=== PATIENT | male | born 1985 | race Two or more races ===

== ENCOUNTER 2025-02-18 17:27 | Emergency (ER) | payer SELFPAY ==
[2025-02-18] VITALS (10 sets, daily range): BP systolic 146–220; BP diastolic 92–134; PULSE 92–135; RESP 18–19; TEMP 36.6; O2SAT 93–98; BMI 31.4
--- NOTE | 2025-02-18 17:39 | EDNOTE_ITS ---
ED General RME/HPI General Chief complaint: General Adult/Misc Complain Stated complaint: MEDICAL CLEARANCE Time Seen by Provider: 02/18/25 17:35 Arrival date/time: 02/18/25 17:27 CC: Medical clearance. The patient is known to be hypertensive and tachycardic at the time of exam. The patient admits to alcohol but no other medications. Patient states he has high blood pressure but has not taken his hypertensive medication in a very long time . Patient is awake alert oriented direct eye content nonviolent very cooperative and appears not in any acute distress. Denies chest pain shortness of breath or difficulty breathing. Related Data Allergies Allergy/AdvReac Type Severity Reaction Status Date / Time bee venom protein (honey bee) Allergy Severe Anaphylaxis Verified 02/18/25 17:41 Review of Systems Review of Systems Narrative Review of Systems: GEN: No fever, no chills, no weight loss EYES: No discharge, no visual changes, no pain HEENT: No ear pain, no congestion, no sore throat PULM: No shortness of breath, no cough, no congestion CV: No chest pain, no dyspnea on exertion, no palpitations GI: No nausea, no vomiting, no diarrhea, no pain, no constipation : No frequency, no urgency, no dysuria MUSC/SKEL: No joint pain, no back pain SKIN: No rash PSYCH: No hallucinations, no depression HEME/LYMPH: No easy bleeding or bruising tendencies NEURO: No weakness, no headache ED Exam Narrative Physical exam: [General: Appears not in any acute distress Head normocephalic HEENT: Within acceptable limits Neck is supple nontender Chest equal chest rise nontender to palpation Respiratory: Clear to auscultation no wheezes crackles or rubs CV: Rate rhythm is regular tachycardic, bounding pulses, no murmurs rubs or clicks Abdomen is soft nontender no masses positive bowel sounds all 4 quadrants Back: No CVA tenderness no spinous process tenderness from cervical spine thoracic and lumbar spine Skin: Intact no petechiae rash induration ulceration or crepitus Extremities: Moving all extremity against resistance cap refill less than 2 seconds neurosensory intact Neuro: Awake alert oriented x3 Glascow coma 15 no focal deficits] Course Quality Measures none Orders Category Date Time Status Diazepam [Valium] Med 02/18/25 17:38 Discontinued 10 mg PO X1 ONE Lisinopril [Prinivil] Med 02/18/25 18:20 Discontinued 20 mg PO X1 ONE Metoprolol Tartrate [Lopressor] Med 02/18/25 18:20 Discontinued 50 mg PO X1 ONE cloNIDine HCL [Catapres] Med 02/18/25 17:38 Discontinued 0.3 mg PO X1 ONE cloNIDine HCL [Catapres] Med 02/18/25 18:20 Discontinued 0.3 mg PO X1 ONE hydrALAZINE HCL [Apresoline] Med 02/18/25 17:38 Discontinued 25 mg PO X1 ONE Vital Signs Vital signs: Vital Signs Temperature 97.9 F 02/18/25 17:32 Pulse Rate 135 H 02/18/25 17:32 Respiratory Rate 18 02/18/25 17:32 Blood Pressure 220/134 H 02/18/25 17:32 Pulse Oximetry (%) 98 02/18/25 17:32 Oxygen Delivery Method Room Air 02/18/25 17:32 [facility] Patient data External records reviewed:: [facility] previous records Clinical information provided by:: patient and law enforcement Social determinants that could affect healthcare access:: none Patient has the following chronic illnesses:: Hypertension with medication noncompliance How is presenting disease/condition affected by chronic disease/condition?: exacerbated by Evaluation data The following diagnostics were reviewed and interpreted by me:: other (specify) (None) Lab and/or radiology exams considered but not ordered:: After 2 rounds of clonidine gone given lisinopril and metoprolol patient's blood pressure is gone from 230/130 to 140/90. Patient refused Valium heart rate is now decreased from the 130s to 93. This time comfortable discharging the patient to residential. Interpretation Summary: Hypertension medication noncompliance, medical clearance Medications Medications considered but not ordered:: None Medication administrations:: Medication Administration History Discontinued Medications Clonidine (Clonidine Hcl 0.1 Mg Tablet) 0.3 mg PO X1 ONE Stop: 02/18/25 17:39 Last Admin: 02/18/25 17:48 Dose: 0.3 mg Documented By: MARU Clonidine (Clonidine Hcl 0.1 Mg Tablet) 0.3 mg PO X1 ONE Stop: 02/18/25 18:21 Last Admin: 02/18/25 18:25 Dose: 0.3 mg Documented By: MARU Diazepam (Diazepam 5 Mg Tablet) 10 mg PO X1 ONE Stop: 02/18/25 17:39 Last Admin: 02/18/25 17:42 Dose: Not Given Documented By: MARU Non-Admin Reason: Patient Refused Hydralazine HCl (Hydralazine Hcl 25 Mg Tablet) 25 mg PO X1 ONE Stop: 02/18/25 17:39 Last Admin: 02/18/25 17:47 Dose: 25 mg Documented By: MARU Lisinopril (Lisinopril 20 Mg Tablet) 20 mg PO X1 ONE Stop: 02/18/25 18:21 Last Admin: 02/18/25 18:25 Dose: 20 mg Documented By: MARU Metoprolol Tartrate (Metoprolol Tartrate 25 Mg Tablet) 50 mg PO X1 ONE Stop: 02/18/25 18:21 Last Admin: 02/18/25 18:25 Dose: 50 mg Documented By: MARU None Consultations Consultation(s) initiated? (list below): No Diagnosis Differential Diagnosis ED Complaint MDM: Medical clearance, hypertension due to medication noncompliance Most likely diagnosis given after review of the tests above:: Hide medical clearance hypertension due to medication noncompliance Admission Indicated Admission indicated?: not indicated Explain why admission is indicated or not indicated:: Stable for residential Admission Request Was there a request for admission?: No Disposition Plan Disposition Plan: Discharge Discharge Attestation Discharge Attestation: The patient and all family members were given an opportunity to ask questions and understood the discharge instructions. Discharge instructions specifically effects, indications for sooner follow up or return to the emergency department, and the expected course of current diagnosis. Patient condition: Stable Medical Decision Making Differential Diagnosis Differential Diagnosis: Medical clearance, hypertension due to medication noncompliance Discharge Plan Plan Patient Disposition: HOME (Self Care) Patient condition on transfer: Stable Prescriptions/Referrals Referrals: No Primary/Family,Physician [Primary Care Provider] - In 1 week Problem List Clinical Impression: Medical clearance for incarceration, Hypertension Patient/Caregiver Discharge Instructions Print Language: Sinhala Stand Alone Forms: Josi Award Info., Patient Portal Info Letter PA/СЕРГЕЙ Supervising Physician LUTHER/СЕРГЕЙ Supervising Physician: Miguelina Schaefer ENP
[2025-02-18] MEDS: hydrALAZINE HCL 25 MG TABLET PO (17:47)
[2025-02-18] MEDS: cloNIDine HCL 0.1 MG TABLET 0.3 MG PO ×2 (17:48→18:25)
--- NOTE | 2025-02-18 17:50 | PC.NURSE ---
brought in by dandy gallardo for medical clearence
--- NOTE | 2025-02-18 17:50 | PC.NURSE ---
pt refused valium
[2025-02-18] MEDS: METOPROLOL TARTRATE 25 MG TABLET 50 MG PO (18:25)
[2025-02-18] MEDS: Lisinopril 20 MG TABLET PO (18:25)
== END 2025-02-18 19:22 ==
PROVIDERS: Emergency Provider Emergency Medicine
DX: Z02.89 Encounter for other administrative examinations (principal); I10 Essential (primary) hypertension
CPT/HCPCS: 99282; A9270